=== PATIENT | female | born 1950 | race Caucasian/White ===

== ENCOUNTER 2018-04-01 14:03 | Outpatient (CLI) | payer MEDICARE ==
--- NOTE | 2018-04-01 17:30 | CT ---
CT THORAX NONCONTRAST: (Low dose screening) 04/01/18 HISTORY: 67-year-old female with history of smoking. COMPARISON: None. FINDINGS: There is a tiny 0.4 x 0.3 x 0.2 cm noncalcified, triangular nodule with flat craniocaudal dimension i n the right middle lobe abutting the undersurface of the minor fissure, representing a benign intrapu lmonary lymph node. Otherwise, there are no suspicious pulmonary nodules. No high grade centrilobular or paraseptal emphysematous changes. The lungs are essentially clear. No pulmonary effusion or pneum othorax. No cardiomegaly. Tortuosity of nonaneurysmal descending thoracic aorta. No mediastinal lymph adenopathy. No stenosis of trachea and major bronchi. Liver is enlarged and has nodular margins. Surg ical clips in the gallbladder fossa. IMPRESSION: 1. Lung RADS 1,S (negative, less than 1% chance of malignancy, but with clinically significant n on-lung cancer finding). 2. Possible hepatic cirrhosis. Recommend clinical correlation. 3. Otherwise recommend continued routine low dose screening lung CT in one year. KARLIE Panchal POS: [facility]
== END 2018-04-01 14:04 | disposition home or self-care (01) ==
LOC: CT 14:03
PROVIDERS: ATTEND Family Medicine
DX: Z87.891 Personal history of nicotine dependence (principal)
CPT/HCPCS: G0297

== ENCOUNTER 2018-04-14 14:13 | Outpatient (CLI) | payer MEDICARE ==
--- NOTE | 2018-04-14 18:08 | BD ---
DEXA BONE DENSITY STUDY: HISTORY: Asymptomatic menopausal state. COMPARISON: DEXA study from 2017. FINDINGS: LUMBAR SPINE BMD (g/cm2) T-SCORE Z-SCORE L1 0.913 -0.7 1.2 L2 0.925 -0.9 1.1 L3 0.878 -1.9 0.3 L4 0.846 -2.0 0.3 TOTAL 0.892 -1.4 0.7 WHO CLASSIFICATION: Osteopenia. BMD (g/cm2) T-SCORE Z-SCORE LEFT FEMORAL NECK: 0.759 -0.8 1.0 TOTAL LEFT HIP: 0.847 -0.8 0.7 WHO CLASSIFICATION: Normal. TEN YEAR FRACTURE RISK: Major osteoporosis fracture: 7.8% Hip fracture: 0.7% IMPRESSION: Osteopenia of the lumbar spine with fracture risk as above. POS: [facility]
== END 2018-04-14 14:14 | disposition home or self-care (01) ==
LOC: BICMAMMO 14:13
PROVIDERS: ATTEND Family Medicine
DX: Z12.31 Encounter for screening mammogram for malignant neoplasm of breast (principal); Z13.820 Encounter for screening for osteoporosis; Z78.0 Asymptomatic menopausal state; M85.88 Other specified disorders of bone density and structure, other site
CPT/HCPCS: 77063; 77067; 77080

== ENCOUNTER 2019-01-26 14:00 | Outpatient (CLI) | payer MEDICARE | END 2019-01-26 14:01 | disposition home or self-care (01) | LOC: SLEEPLAB 14:00 | PROVIDERS: ATTEND Family Medicine | DX: G47.33 Obstructive sleep apnea (adult) (pediatric) (principal); R06.83 Snoring; R53.83 Other fatigue; E11.9 Type 2 diabetes mellitus without complications; I10 Essential (primary) hypertension | CPT/HCPCS: 95806 ==

== ENCOUNTER 2019-04-15 10:24 | Outpatient (CLI) | payer MEDICARE ==
--- NOTE | 2019-04-15 13:36 | MMO ---
Bilateral MAMMO Bilat Screen [facility]. CLINICAL HISTORY: Patient is 69 years old and is seen for screening. The patient has no family history of breast cancer. The patient has no personal history of cancer. VIEWS: The views performed were: bilateral craniocaudal with tomosynthesis and bilateral mediolateral oblique with tomosynthesis. FILMS COMPARED: The present examination has been compared to prior imaging studies performed at [facility] on 08/11/2012, 02/18/2017 and 04/14/2018, and at [facility] on 08/03/2010. This study has been interpreted with the assistance of computer-aided detection. MAMMOGRAM FINDINGS: There are scattered fibroglandular densities. There are benign appearing calcifications seen in both breasts. There are no suspicious masses, suspicious calcifications, or new areas of architectural distortion. IMPRESSION: THERE IS NO MAMMOGRAPHIC EVIDENCE OF MALIGNANCY. A ROUTINE FOLLOW-UP MAMMOGRAM IN 1 YEAR IS RECOMMENDED. THE RESULTS OF THIS EXAM WERE SENT TO THE PATIENT. ACR BI-RADS Category 2 - Benign finding MAMMOGRAPHY NOTE: 1. A negative mammogram report should not delay a biopsy if a dominant of clinically suspicious mass is present. 2. Approximately 10% to 15% of breast cancers are not detected by mammography. 3. Adenosis and dense breasts may obscure an underlying neoplasm. Reported by: MARY MOSCOSO MD Electonically Signed: [id number]
== END 2019-04-15 10:25 | disposition home or self-care (01) ==
LOC: BICMAMMO 10:24
PROVIDERS: ATTEND Family Medicine
DX: Z12.31 Encounter for screening mammogram for malignant neoplasm of breast (principal)
CPT/HCPCS: 77063; 77067

== ENCOUNTER 2020-08-02 10:27 | Outpatient (CLI) | payer MEDICARE | END 2020-08-02 10:28 | disposition home or self-care (01) | LOC: BICMAMMO 10:27 | PROVIDERS: ATTEND Family Medicine | DX: Z12.31 Encounter for screening mammogram for malignant neoplasm of breast (principal) | CPT/HCPCS: 77063; 77067 ==

== ENCOUNTER 2023-07-03 08:00 | Outpatient (CLI) | payer MEDICARE | END 2023-07-03 08:01 | disposition home or self-care (01) | LOC: PET 08:00 | PROVIDERS: ATTEND Internal Medicine Hematology & Oncology | DX: D23.9 Other benign neoplasm of skin, unspecified (principal) | CPT/HCPCS: 78816; A9552 ==